=== PATIENT | male | born 1965 | race African-American/Black ===

== ENCOUNTER 2018-03-02 05:22 | Observation (INO) | payer OTHER ==
--- NOTE | 2018-03-01 15:47 | Diagnostic Imaging Report ---
EXAM: XR CHEST 2 VIEWS DATE: 03/01/2018 3:09 PM INDICATION: Preoperative, lumbar, pain COMPARISON: None FINDINGS: Lines and Tubes: None Heart and Mediastinum: No acute cardiomediastinal findings. Lungs and Pleura: No significant pleural effusion, pneumothorax, or focal consolidation. Minimal opacities in the lung bases statistically represent atelectasis, however, infectious process could have a similar appearance. Bones and Soft Tissues: No acute findings. IMPRESSION: 1. No acute cardiopulmonary findings. \ Signed by: Dr. Erik Denis MD on 03/01/2018 3:44 PM
[2018-03-01 15:57] LABS: BASOPHILS # (AUTO) 0.1 (0.0-0.1); BASOPHILS % 0.6 % (0.0-1.0); EOSINOPHILS # (AUTO) 0.2 (0.0-0.4); EOSINOPHILS % 2.1 % (0.0-6.0); HEMATOCRIT 39.3 % (38.2-49.6); HEMOGLOBIN 13.6 g/dL (14.0-18.0); LYMPHOCYTES # (AUTO) 3.8 (1.0-3.2); LYMPHOCYTES % 48.7 % (18.0-39.1); MEAN CORPUSCULAR HEMOGLOBIN 32.7 pg (28-32); MEAN CORPUSCULAR HGB CONC 34.6 g/dL (31-35); MEAN CORPUSCULAR VOLUME 94.5 fL (81-99); MONOCYTES # (AUTO) 0.8 (0.2-0.8); MONOCYTES % 9.6 % (4.4-11.3); NEUTROPHILS % 38.7 % (38.7-80.0); PLATELET COUNT 292 x10e3/uL (140-360); RED BLOOD COUNT 4.16 x10e6/uL (4.3-5.7); RED CELL DISTRIBUTION WIDTH 13.4 % (11.7-14.4)
[2018-03-01 16:09] LABS: INR 0.85; PARTIAL THROMBOPLASTIN TIME 28.9 seconds (23.8-35.5); PROTHROMBIN TIME 12.4 seconds (11.9-14.5)
[2018-03-01 16:15] LABS: ANION GAP 14.4 mmol/L (8-16); BLOOD UREA NITROGEN 12 mg/dL (7-26); BUN/CREATININE RATIO 11 (6-25); CALCIUM 9.7 mg/dL (8.4-10.2); CARBON DIOXIDE 26 mmol/L (22-29); CHLORIDE 103 mmol/L (98-107); CREATININE, SERUM 1.06 mg/dL (0.72-1.25); EST GLOMERULAR FILTRATION RATE > 60 ML/MIN (60-); GLUCOSE 95 mg/dL (74-118); POTASSIUM 3.4 mmol/L (3.5-5.1); SODIUM 140 mmol/L (136-145)
[~2018-03-02] VITALS: Ht 180.3 cm; Wt 103.0 kg
[~2018-03-02 05:22] MED LIST: CRESTOR10 MG; HYZAAR 100-251 EACH; TRULICITY; ULTRACET TABLE1 EACH
--- OUTSIDE RECORDS SUMMARY | 2018-03-02 05:24 | XMS REPORT ---
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 Allergies, Adverse Reactions, Alerts Allergy Name Allergy Type Status Severity Reaction(s) Onset Date Inactive Date Treating Clinician Comments No Known Allergies DA Active U 2016-09-30 00:00:00 Medications This patient has no known medications. Results Test Description Test Time Test Comments Text Results Atomic Results Result Comments CHEST 2 VIEWS 2018-03-01 15:43:00 [place] [address] Patient Name: SALVADOR EDMONDS III MR #: [id number] : 1965 Age/Sex: 52/M Req #: [id number] Adm Physician: Ordered by: DANI STEPHENS MD Report #: [id number] Location: OR Room/Bed: Procedure: [id number] DX/CHEST 2 VIEWS Exam Date: Exam Time: REPORT STATUS: Signed EXAM: XR CHEST 2 VIEWS DATE: 03/01/2018 3:09 PM INDICATION: Preoperative, lumbar, pain COMPARISON: None FINDINGS: Lines and Tubes: None Heart and Mediastinum: No acute cardiomediastinal findings. Lungs and Pleura: No significant pleural effusion, pneumothorax, or focal consolidation. Minimal opacities in the lung bases statistically represent atelectasis, however, infectious process could have a similar appearance. Bones and Soft Tissues: No acute findings. IMPRESSION: 1. No acute cardiopulmonary findings. Signed by: Dr. Erik Wolf MD on 03/01/2018 3:44 PM Dictated By: ERIK WOLF MD [id number] Transcribed By: MONISHA on 03/01/18 1544 COPY TO: DANI STEPHENS MD
[2018-03-02] MEDS ORDERED: CEFAZOLIN SOD 2 GM/D5W 50ML 50 ML IV ONE (05:41)
[2018-03-02] MEDS ORDERED: BUPIVACAINE 0.5%/EPI 30 ML SDV INJ ONE (06:37)
[2018-03-02] MEDS ORDERED: GELATIN SPONGE 12-7MM ONE (06:37)
[2018-03-02] MEDS ORDERED: THROMBIN FOR SOLN 5,000 UNIT VIAL ONE ×2 (06:37→08:18)
[2018-03-02] MEDS ORDERED: BACITRACIN 50,000 UNIT VIAL ONE ×2 (06:37→08:18)
[2018-03-02] MEDS: LACTATED RINGER'S 1,000 ML IV SCH ×2 (09:01→17:21)
[2018-03-02] MEDS ORDERED: FENTANYL CITRATE/PF 100MCG/2 ML INJ ONE ×2 (09:12→19:29)
[2018-03-02] MEDS ORDERED: MORPHINE SULFATE 5 MG/ML VIAL IM PRN (09:15)
[2018-03-02] MEDS ORDERED: MAGNESIUM/ALUMINUM/SIMETHICONE 30 ML UDC PO PRN (09:15)
[2018-03-02] MEDS ORDERED: CARISOPRODOL 350 MG TAB PO PRN (09:15)
[2018-03-02] MEDS ORDERED: PROMETHAZINE HCL (IM) 25 MG/ML VIAL IM PRN (09:15)
[2018-03-02] MEDS ORDERED: DEXTROSE 50% SYRINGE 50 ML IV PRN (09:15)
[2018-03-02] MEDS ORDERED: HYDROMORPHONE 2MG/ML 2 MG/ML ML IV PRN ×2 (09:15)
[2018-03-02] MEDS ORDERED: ACETAMINOPHEN 325 MG TAB PO PRN (09:15)
[2018-03-02] MEDS ORDERED: ZOLPIDEM TARTRATE 5 MG TAB PO PRN (09:15)
--- NOTE | 2018-03-02 09:42 | Operative Report ---
DATE OF PROCEDURE: March 02, 2018 PREOPERATIVE DIAGNOSIS: L2-L3 disk herniation with radiculopathy, M51.16. POSTOPERATIVE DIAGNOSIS: L2-L3 disk herniation with radiculopathy, M51.16. PROCEDURE: Left L2-L3 laminotomy, medial facetectomy and microsurgical diskectomy, 56125. ANESTHESIA: General. INDICATIONS: The patient is a 52-year-old man who presents with a central and left paracentral disk herniation at L2-L3 symptomatic with bilateral radiculopathy, and was taken to the operating room for microsurgical diskectomy. PROCEDURE: After induction of general anesthesia, the patient was placed on the operating table in the prone position over a Feliberto frame. The lumbar region was prepped and draped in a sterile fashion. A preoperative x-ray was obtained. A small midline incision was created. Lumbar fascia was opened left of the midline, and subperiosteal dissection was carried out to expose the left side of the L2 and L3 laminae and the medial aspect of facet joint. A 2nd x-ray confirmed correct localization. The operating microscope was brought in. A high-speed drill equipped with a dale bur was used to drill the inferior aspect of lamina of L2 and the superior aspect of lamina of L3, and the medial rim of the L2-L3 facet joints. The ligament flavum was resected. The dural sac and the left L3 nerve root were exposed. The nerve root was slightly retracted medially. The herniated disk material immediately came into view extending below the disk space. The herniated disk material was retrieved with a microball probe and removed with a micropituitary rongeur. A ball probe was passed ventral to the dural sac and used to retrieve additional fragments of disk from this center back into the lateral area where the disk was removed. This maneuver was repeated numerous times reaching from left to right until the ventral epidural space was fully decompressed. The opening into the annulus of the disk was enlarged with a #11 blade. The loose contents of the disk were evacuated with curettes and pituitary rongeurs. Meticulous hemostasis was secured. Retractor was removed. The lumbar fascia was closed with 0 Vicryl sutures. Subcutaneous layer was closed with 2-0 Vicryl sutures. The skin was closed with 3-0 Monocryl sutures in a subcuticular fashion. Steri-Strips and dressing were applied. The patient was awakened, extubated and taken to the postanesthesia care unit in stable condition. No intraoperative complications were encountered. Estimated blood loss was 10 mL. Job#: [id number] DANIELLE
[2018-03-02] MEDS: OXYCODONE/ACETAMINOPHEN 5-325 1 EACH TABLET PO PRN ×2 (11:20→20:09)
[2018-03-02] MEDS: ONDANSETRON HCL INJ 2 MG/ML VIAL IV PRN (11:20)
[2018-03-02 11:57] VITALS: BP 149/85
[2018-03-02 12:07] VITALS: BP 149/85
[2018-03-02] MEDS: CEFAZOLIN SOD 1 GM/D5W 50ML 50 ML IV SCH ×2 (15:07→21:36)
[2018-03-02 15:49] VITALS: BP 119/65
[2018-03-02] MEDS ORDERED: EPHEDRINE SULFATE INJ 50 MG/10 ML SYR ONE (18:32)
[2018-03-02] MEDS ORDERED: ONDANSETRON HCL INJ 2 MG/ML VIAL ONE (18:32)
[2018-03-02] MEDS ORDERED: PROPOFOL IV EMULSION 10 MG/ML 20 ML VIAL ONE (18:32)
[2018-03-02] MEDS ORDERED: ACETAMINOPHEN 1000 MG/100 ML IV ONE (18:32)
[2018-03-02] MEDS ORDERED: ISOFLURANE INHAL SOLN 250 ML BTL INH ONE (18:32)
[2018-03-02] MEDS ORDERED: NEOSTIGMINE 5 MG/5ML SYR ONE (18:32)
[2018-03-02] MEDS ORDERED: LIDOCAINE HCL 2% LOCAL INJ 5 ML SDV VIAL INJ ONE (18:32)
[2018-03-02] MEDS ORDERED: ROCURONIUM BROMIDE 10 MG/ML 5ML VIAL ONE (18:32)
[2018-03-02] MEDS ORDERED: DEXAMETHASONE SOD PHOS INJ 4 MG/ML VIAL ONE (18:32)
[2018-03-02] MEDS ORDERED: GLYCOPYRROLATE INJ 1MG/ 5 ML SYR ONE (18:32)
[2018-03-02] MEDS ORDERED: MIDAZOLAM HCL 2 MG/2 ML VIAL ONE (19:29)
[2018-03-02 20:00] VITALS: BP 129/74
[2018-03-02 20:04] VITALS: BP 129/74
[2018-03-02] MEDS ORDERED: SIMVASTATIN 20 MG TAB PO SCH (21:00)
[2018-03-03] VITALS: BP 123/53
[2018-03-03] MEDS: LACTATED RINGER'S 1,000 ML IV SCH ×2 (01:41→10:01)
[2018-03-03 04:00] VITALS: BP 135/69
[2018-03-03] MEDS: CEFAZOLIN SOD 1 GM/D5W 50ML 50 ML IV SCH (05:11)
[2018-03-03] MEDS: OXYCODONE/ACETAMINOPHEN 5-325 1 EACH TABLET PO PRN (06:14)
[2018-03-03] MEDS: ONDANSETRON HCL INJ 2 MG/ML VIAL IV PRN (08:00)
[2018-03-03] MEDS ORDERED: SIMVASTATIN 40 MG TAB PO SCH (09:00)
[2018-03-03] MEDS ORDERED: LOSARTAN POTASSIUM 100 MG TAB PO SCH (09:00)
[2018-03-03 09:12] VITALS: BP 142/80
[2018-03-03] MEDS ORDERED: NORCO 7.5-3251 EACH PO (10:12)
== END 2018-03-03 10:57 | disposition home or self-care (01) ==
LOC: OR 05:22 → PACU V 09:05 → MED/SURG 10:46
PROVIDERS: ADMIT Neurological Surgery; ATTEND Neurological Surgery
DX: M51.16 Intervertebral disc disorders with radiculopathy, lumbar region (principal); I10 Essential (primary) hypertension; E78.5 Hyperlipidemia, unspecified; Z01.810 Encounter for preprocedural cardiovascular examination; Z01.812 Encounter for preprocedural laboratory examination; Z01.818 Encounter for other preprocedural examination; E11.9 Type 2 diabetes mellitus without complications; Z79.899 Other long term (current) drug therapy
CPT/HCPCS: 36415 ×3; 63030; 71046; 72020; 80048; 82948 ×2; 85025; 85610; 85730; 86850; 86900; 88304; 93005; G0378 ×2; J0131; J0690 ×2; J1100; J2001; J2250; J2405 ×2; J2704; J3490

== ENCOUNTER 2021-11-18 06:38 | Emergency (ER) | payer OTHER ==
[~2021-11-18] VITALS: Ht 180.3 cm; Wt 103.0 kg
[~2021-11-18 06:38] MED LIST changes: +NORCO 7.5-3251 EACH PO
[2021-11-18] MEDS ORDERED: HYDROCODONE/APAP 7.5MG-325MG 1 EA TAB PO ONE (07:15)
[2021-11-18] MEDS ORDERED: KETOROLAC TROMETHAMINE 60 MG/2 ML VIAL IM ONE (07:15)
[2021-11-18] MEDS ORDERED: METHOCARBAMOL500 MG PO (07:32)
[2021-11-18] MEDS ORDERED: ULTRAM 50MG50 MG PO (07:32)
[2021-11-18] MEDS ORDERED: CELEBREX100 MG PO (07:32)
== END 2021-11-18 07:40 | disposition home or self-care (01) ==
LOC: ER 06:43
DX: M54.32 Sciatica, left side (principal); M54.31 Sciatica, right side; E11.40 Type 2 diabetes mellitus with diabetic neuropathy, unspecified; I10 Essential (primary) hypertension; E78.5 Hyperlipidemia, unspecified
CPT/HCPCS: 99282; J1885

== ENCOUNTER 2023-10-13 06:20 | Observation (INO) | payer OTHER ==
[2023-10-11 14:02] LABS: BASOPHILS # (AUTO) 0.1 (0.0-0.1); BASOPHILS % 1.1 % (0.0-1.0); EOSINOPHILS # (AUTO) 0.2 (0.0-0.4); EOSINOPHILS % 2.4 % (0.0-6.0); HEMATOCRIT 38.5 % (38.2-49.6); LYMPHOCYTES # (AUTO) 2.6 (1.0-3.2); LYMPHOCYTES % 41.1 % (18.0-39.1); MEAN CORPUSCULAR HEMOGLOBIN 31.6 pg (28-32); MEAN CORPUSCULAR HGB CONC 33.8 g/dL (31-35); MEAN CORPUSCULAR VOLUME 93.4 fL (81-99); MONOCYTES # (AUTO) 0.5 (0.2-0.8); MONOCYTES % 8.5 % (4.4-11.3); NEUTROPHILS % 46.7 % (38.7-80.0); PLATELET COUNT 262 x10e3/uL (140-360); RED BLOOD COUNT 4.12 x10e6/uL (4.3-5.7); RED CELL DISTRIBUTION WIDTH 12.5 % (11.7-14.4); WHITE BLOOD COUNT 6.33 x10e3/uL (4.8-10.8)
[2023-10-11 14:20] LABS: ANION GAP 15.9 mmol/L (8-16); CALCIUM 9.2 mg/dL (8.4-10.2); CREATININE, SERUM 1.09 mg/dL (0.72-1.25); POTASSIUM 3.9 mmol/L (3.5-5.1)
[2023-10-11 14:21] LABS: INR 0.84; PARTIAL THROMBOPLASTIN TIME 24.7 seconds (23.8-35.5); PROTHROMBIN TIME 12.1 seconds (11.9-14.5)
[~2023-10-13] VITALS: Ht 180.3 cm; Wt 92.1 kg
[~2023-10-13 06:20] MED LIST changes: +AMOXICILLIN500 MG PO; +CELEBREX100 MG PO; +FLOMAX0.4 MG PO; +GABAPENTIN400 MG PO; +METHOCARBAMOL500 MG PO; +NABUMETONE500 MG PO; +TIZANIDINE HCL4 MG PO; +ULTRAM 50MG50 MG PO
[2023-10-13] MEDS: CEFAZOLIN SODIUM 2 GM ONE (06:49)
[2023-10-13] MEDS: LACTATED RINGER'S 1,000 ML ONE (06:49)
[2023-10-13] MEDS ORDERED: MIDAZOLAM HCL 2 MG/2 ML VIAL ONE (09:57)
[2023-10-13] MEDS ORDERED: FENTANYL CITRATE/PF 100MCG/2 ML INJ ONE (09:57)
[2023-10-13] MEDS ORDERED: PHENYLEPHRINE HCL 1% 10 MG/ML VIAL ONE (10:44)
[2023-10-13] MEDS ORDERED: DEXAMETHASONE SOD PHOS 10 MG/1 ML VIAL ONE (10:44)
[2023-10-13] MEDS ORDERED: ROCURONIUM BROMIDE 10 MG/ML 5ML VIAL IV ONE (10:44)
[2023-10-13] MEDS ORDERED: LIDOCAINE HCL 2% LOCAL INJ 5 ML SDV VIAL INJ ONE (10:44)
[2023-10-13] MEDS ORDERED: ACETAMINOPHEN 1000 MG/100 ML IV ONE (10:44)
[2023-10-13] MEDS ORDERED: DEXMEDETOMIDINE HCL 200 MCG/2 ML VIAL ONE (10:44)
[2023-10-13] MEDS ORDERED: SEVOFLURANE INHAL SOLN 250 ML PEN BTL ONE (10:44)
[2023-10-13] MEDS ORDERED: SUGAMMADEX SODIUM 200 MG/2 ML VIAL IV ONE (10:44)
[2023-10-13] MEDS ORDERED: ONDANSETRON HCL INJ 2MG/ML 2ML 2 MG/ML VIAL ONE (10:44)
[2023-10-13] MEDS ORDERED: PROPOFOL IV EMULSION 10 MG/ML 20 ML VIAL ONE (10:44)
[2023-10-13] MEDS ORDERED: HYDROCODON-ACE1 EA12 PO (11:57)
[2023-10-13] MEDS ORDERED: ACETAMINOPHEN 325 MG TAB PO PRN (12:00)
[2023-10-13] MEDS ORDERED: ZOLPIDEM TARTRATE 5 MG TAB PO PRN (12:00)
[2023-10-13] MEDS ORDERED: HYDROCODONE/APAP 7.5MG-325MG 1 EA TAB PO SCH (12:00)
[2023-10-13] MEDS ORDERED: MORPHINE SULFATE 5 MG/ML VIAL IM PRN (12:00)
[2023-10-13] MEDS ORDERED: METHOCARBAMOL 500 MG TAB PO PRN (12:00)
[2023-10-13] MEDS ORDERED: DEXTROSE 50% SYRINGE 50 ML IV PRN (12:00)
[2023-10-13] MEDS ORDERED: CEPACOL SORE THROAT LOZENGES PO PRN (12:00)
[2023-10-13] MEDS ORDERED: MAGNESIUM/ALUMINUM/SIMETHICONE 30 ML UDC PO PRN (12:00)
[2023-10-13] MEDS ORDERED: PROMETHAZINE HCL (IM) 25 MG/ML VIAL IM PRN (12:00)
[2023-10-13] MEDS ORDERED: HYDROMORPHONE 2MG/ML IV PRN (12:00)
[2023-10-13] MEDS ORDERED: ONDANSETRON HCL INJ 2MG/ML 2ML 2 MG/ML VIAL IV PRN (12:00)
[2023-10-13 13:00] VITALS: BP 143/100; PULSE 104; RESP 18; TEMP 97.6; O2SAT 95
[2023-10-13 13:13] VITALS: BP 143/100; PULSE 104; RESP 18; TEMP 97.6; O2SAT 95
[2023-10-13] MEDS: LACTATED RINGER'S 1,000 ML IV SCH (13:30)
[2023-10-13] MEDS: INSULIN REGULAR, HUMAN 100 UNIT/1 ML ONE ×2 (13:39)
[2023-10-13] MEDS: OXYCODONE/ACETAMINOPHEN 5-325 1 EACH TABLET PO PRN (15:13)
[2023-10-13] MEDS: CARISOPRODOL 350 MG TAB PO PRN (15:14)
[2023-10-13 16:09] VITALS: BP 156/87; PULSE 96; RESP 17; TEMP 98.2; O2SAT 99
[2023-10-13] MEDS: INSULIN REGULAR, HUMAN 100 UNIT/1 ML SQ SCH (16:14)
[2023-10-13] MEDS ORDERED: GABAPENTIN 400 MG CAP PO SCH (17:00)
[2023-10-13] MEDS: GLIPIZIDE 5 MG TAB ER PO SCH (17:30)
[2023-10-13 17:32] VITALS: BP 156/87; PULSE 96; RESP 17; TEMP 98.2; O2SAT 99
[2023-10-13 20:35] VITALS: BP 132/88; PULSE 89; RESP 18; TEMP 98.6; O2SAT 99
[2023-10-13] MEDS: GABAPENTIN 400 MG CAP PO SCH (21:27)
[2023-10-13] MEDS: CRESTOR 10MG PO SCH (21:27)
[2023-10-14 00:33] VITALS: BP 144/81; PULSE 91; RESP 17; TEMP 98.3; O2SAT 98
[2023-10-14 04:00] VITALS: BP 146/89; PULSE 92; RESP 18; TEMP 98.7; O2SAT 99
[2023-10-14 07:32] VITALS: BP 140/92; PULSE 88; RESP 18; TEMP 99; O2SAT 100
[2023-10-14 08:00] VITALS: BP 140/92; PULSE 88; RESP 18; TEMP 99; O2SAT 100
[2023-10-14 08:30] VITALS: BP 140/92
[2023-10-14] MEDS: LOSARTAN POTASSIUM 100 MG TAB PO SCH (08:30)
[2023-10-14] MEDS ORDERED: TIZANIDINE HCL 4 MG TAB PO SCH (09:00)
[2023-10-14] MEDS ORDERED: SIMVASTATIN 40 MG TAB PO SCH (09:00)
[2023-10-14] MEDS ORDERED: TIZANIDINE HCL 4 MG TAB PO PRN (09:00)
== END 2023-10-14 09:30 | disposition home or self-care (01) ==
LOC: OR 06:20 → PACU V 12:04 → MED/SURG3 12:45
PROVIDERS: ADMIT Neurological Surgery; ATTEND Neurological Surgery
DX: M51.16 Intervertebral disc disorders with radiculopathy, lumbar region (principal); I10 Essential (primary) hypertension; E78.5 Hyperlipidemia, unspecified; E11.9 Type 2 diabetes mellitus without complications; Z79.85 Long-term (current) use of injectable non-insulin antidiabetic drugs; Z79.84 Long term (current) use of oral hypoglycemic drugs; F32.A Depression, unspecified; M19.91 Primary osteoarthritis, unspecified site; Z01.810 Encounter for preprocedural cardiovascular examination; Z01.812 Encounter for preprocedural laboratory examination; Z01.818 Encounter for other preprocedural examination; Z79.899 Other long term (current) drug therapy
CPT/HCPCS: 36415 ×4; 63047; 71046; 72020; 80048; 82947; 82948 ×2; 85025; 85610; 85730; 86850; 86900; 88304; 88311; 93005; G0378 ×2; J0131; J0690 ×2; J1100; J2001; J2250; J2371; J2405; J2704; J3010; J7121